=== PATIENT | male | born 1955 | race African-American/Black ===

== ENCOUNTER 2020-05-10 10:47 | Outpatient (CLI) | payer MEDICARE, MEDICAID, SELFPAY ==
--- NOTE | 2020-05-10 11:30 | NEURO_ITS ---
Impression: # Complains of numbness of lower extremities. # Left peroneal nerve amplitude drop # Otherwise normal nerve conduction study with normal and symmetrical F- waves. # Normal needle/EMG exam. # Clinical correlation recommended; Higher involvement needs to be ruled out. Nerve Conduction Studies Anti Sensory Summary Table Stim Site NR Peak (ms) P-T Amp (?V) Site1 Site2 Delta-P (ms) Dist (cm) Jase (m/s) Left Sup Fibular Anti Sensory (Ant Lat Mall) 14 cm 4.4 14.5 14 cm Ant Lat Mall 4.4 16.0 36 Right Sup Fibular Anti Sensory (Ant Lat Mall) 14 cm 3.8 27.8 14 cm Ant Lat Mall 3.8 16.0 42 Left Sural Anti Sensory (Lat Mall) Calf 4.4 14.4 Calf Lat Mall 4.4 16.0 36 Right Sural Anti Sensory (Lat Mall) Calf 3.6 34.5 Calf Lat Mall 3.6 16.0 44 Motor Summary Table Stim Site NR Onset (ms) O-P Amp (mV) Site1 Site2 Delta-0 (ms) Dist (cm) Jase (m/s) Left Peroneal Motor (Vastus Med) Ankle 4.2 0.9 Popit Ankle 9.7 40.0 41 Popit 13.9 0.6 Right Peroneal Motor ([facility]ast[facility] Med) Ankle 3.8 9.1 Popit Ankle 8.2 40.0 49 Popit 12.0 7.9 Left Tibial Motor (Abd Matthews Brev) Ankle 4.5 1.5 Knee Ankle 10.1 45.0 45 Knee 14.6 0.9 Right Tibial Motor (Abd Matthews Brev) Ankle 4.3 2.1 Knee Ankle 9.1 45.0 49 Knee 13.4 0.9 F Wave Studies NR F-Lat (ms) L-R F-Lat (ms) Left Peroneal (Mrkrs) (EDB) 52.34 1.13 Right Peroneal (Mrkrs) (EDB) 51.21 1.13 Left Tibial (Mrkrs) (Abd Hallucis) 53.29 0.03 Right Tibial (Mrkrs) (Abd Hallucis) 53.26 0.03 EMG Side Muscle Nerve Root Ins Act Fibs Amp Dur Recrt Comment Right AntTibialis Dp Br Fibular L4-5 Nml Nml Nml Nml Nml Right Gastroc Tibial S1-2 Nml Nml Nml Nml Nml Right Fibularis Long Sup Br Fibular L5-S1 Nml Nml Nml Nml Nml Right Flex Dig Long Tibial L5-S2 Nml Nml Nml Nml Nml Right Ext Dig Brev Dp Br Fibular L5, S1 Nml Nml Nml Nml Nml Left AntTibialis Dp Br Fibular L4-5 Nml Nml Nml Nml Nml Left Gastroc Tibial S1-2 Nml Nml Nml Nml Nml Left Fibularis Long Sup Br Fibular L5-S1 Nml Nml Nml Nml Nml Left Flex Dig Long Tibial L5-S2 Nml Nml Nml Nml Nml Left Ext Dig Brev Dp Br Fibular L5, S1 Nml Nml Nml Nml Nml Right QuadratusFem QuadFemoris L4-5, S1 Nml Nml Nml Nml Nml Left QuadratusFem QuadFemoris L4-5, S1 Nml Nml Nml Nml Nml MTDD
== END 2020-05-10 10:48 | disposition home or self-care (01) ==
LOC: ANHNEURO 10:52
PROVIDERS: PCP Family Medicine; Visit Provider Internal Medicine Infectious Disease
DX: G62.9 Polyneuropathy, unspecified (principal)
CPT/HCPCS: 95886; 95910

== ENCOUNTER 2022-02-26 08:44 | Outpatient (CLI) | payer OTHER, MEDICAID, SELFPAY ==
--- NOTE | 2022-02-26 11:00 | NEURO_ITS ---
Impression: # Complains of numbness and cramps of lower extremities. # Normal nerve conduction study with decreased responses in posterior tibial nerves. # Normal needle/EMG exam with no evidence of myotonia or fibs. # Clinical correlation recommended. Nerve Conduction Studies Anti Sensory Summary Table Stim Site NR Peak (ms) P-T Amp (?V) Site1 Site2 Delta-P (ms) Dist (cm) Jase (m/s) Left Sup Fibular Anti Sensory (Ant Lat Mall) 14 cm 4.0 5.6 14 cm Ant Lat Mall 4.0 16.0 40 Right Sup Fibular Anti Sensory (Ant Lat Mall) 14 cm 3.8 15.3 14 cm Ant Lat Mall 3.8 16.0 42 Left Sural Anti Sensory (Lat Mall) Calf 3.7 27.4 Calf Lat Mall 3.7 16.0 43 Right Sural Anti Sensory (Lat Mall) Calf 3.9 8.6 Calf Lat Mall 3.9 16.0 41 Motor Summary Table Stim Site NR Onset (ms) O-P Amp (mV) Site1 Site2 Delta-0 (ms) Dist (cm) Jase (m/s) Left Peroneal Motor ([facility]ast[facility] Med) Ankle 4.1 1.2 Popit Ankle 10.0 39.0 39 Popit 14.1 1.1 Right Peroneal Motor (Vast[facility] Med) Ankle 4.1 7.4 Popit Ankle 8.5 40.0 47 Popit 12.6 6.5 Left Tibial Motor (Abd Matthews Brev) Ankle 5.5 0.4 Knee Ankle 9.3 43.0 46 Knee 14.8 0.2 Right Tibial Motor (Abd Matthews Brev) Ankle 4.4 1.1 Knee Ankle 9.9 46.0 46 Knee 14.3 0.9 F Wave Studies NR F-Lat (ms) L-R F-Lat (ms) Left Peroneal (Mrkrs) (EDB) 52.27 0.86 Right Peroneal (Mrkrs) (EDB) 53.13 0.86 Left Tibial (Mrkrs) (Abd Hallucis) 52.16 0.12 Right Tibial (Mrkrs) (Abd Hallucis) 52.05 0.12 EMG Side Muscle Nerve Root Ins Act Fibs Amp Dur Recrt Comment Right AntTibialis Dp Br Fibular L4-5 Nml Nml Nml Nml Nml Right Gastroc Tibial S1-2 Nml Nml Nml Nml Nml Right Fibularis Long Sup Br Fibular L5-S1 Nml Nml Nml Nml Nml Right Flex Dig Long Tibial L5-S2 Nml Nml Nml Nml Nml Right Ext Dig Brev Dp Br Fibular L5, S1 Nml Nml Nml Nml Nml Left AntTibialis Dp Br Fibular L4-5 Nml Nml Nml Nml Nml Left Gastroc Tibial S1-2 Nml Nml Nml Nml Nml Left Fibularis Long Sup Br Fibular L5-S1 Nml Nml Nml Nml Nml Left Flex Dig Long Tibial L5-S2 Nml Nml Nml Nml Nml Left Ext Dig Brev Dp Br Fibular L5, S1 Nml Nml Nml Nml Nml MTDD
== END 2022-02-26 08:45 | disposition home or self-care (01) ==
LOC: ANHNEURO 08:46
PROVIDERS: PCP Internal Medicine Infectious Disease; Visit Provider Internal Medicine Infectious Disease
DX: G62.9 Polyneuropathy, unspecified (principal)
CPT/HCPCS: 95886; 95910